=== PATIENT | female | born 1990 | race Caucasian/White ===

== ENCOUNTER 2018-12-26 11:43 | Emergency (ER) | payer BC ==
[~2018-12-26] VITALS: Ht 165.1 cm; Wt 63.5 kg
[2018-12-26 11:47] VITALS: BP 132/95
== END 2018-12-26 12:18 | disposition home or self-care (01) ==
LOC: ER 11:45
DX: S06.0X0A Concussion without loss of consciousness, initial encounter (principal); S16.1XXA Strain of muscle, fascia and tendon at neck level, initial encounter; F17.200 Nicotine dependence, unspecified, uncomplicated; W22.8XXA Striking against or struck by other objects, initial encounter; Y93.89 Activity, other specified; Y92.89 Other specified places as the place of occurrence of the external cause; Y99.8 Other external cause status